=== PATIENT | male | born 1945 | race African-American/Black ===

== ENCOUNTER 2019-10-27 07:53 | Emergency (ER) | payer MEDICARE, MEDICAID ==
[~2019-10-27] VITALS: Ht 172.7 cm; Wt 55.0 kg
[2019-10-27] MEDS ORDERED: METHYLPREDNISOLONE SOD SUCC 125 MG/2 ML VIAL IV STA (08:21)
[2019-10-27] MEDS ORDERED: ALBUTEROL (0.083%) 2.5MG/3ML NEB HHN STA (08:21)
[2019-10-27] MEDS ORDERED: IPRATROPIUM BROMIDE (0.02%) 0.5MG/2.5ML NEB HHN STA (08:21)
[2019-10-27 10:12] VITALS: BP 139/72
== END 2019-10-27 10:28 | disposition home or self-care (01) ==
LOC: ER 07:53
DX: R06.02 Shortness of breath (principal)
CPT/HCPCS: 94640; 96374; 99283; J2930

== ENCOUNTER 2019-11-29 12:39 | Emergency (ER) | payer MEDICARE, MEDICAID ==
[~2019-11-29] VITALS: Ht 177.8 cm; Wt 54.0 kg
[2019-11-29] MEDS ORDERED: ALBUTEROL (0.083%) 2.5MG/3ML NEB HHN ONE (14:00)
[2019-11-29] MEDS ORDERED: PREDNISONE 20MG TABLET PO ONE (14:00)
[2019-11-29 16:06] VITALS: BP 136/76
== END 2019-11-29 16:07 | disposition home or self-care (01) ==
LOC: ER 12:39
DX: J44.1 Chronic obstructive pulmonary disease with (acute) exacerbation (principal)
CPT/HCPCS: 71045; 94640; 99283; J7512

== ENCOUNTER 2023-02-01 21:28 | Emergency (ER) | payer MEDICARE, MEDICAID ==
[~2023-02-01] VITALS: Ht 175.3 cm; Wt 68.0 kg
[2023-02-01] MEDS ORDERED: METHYLPREDNISOLONE SOD SUCC 125MG/2ML (ACT-O-VIAL) IV STA (22:18)
[2023-02-01] MEDS ORDERED: IPRATROPIUM BROMIDE (0.02%) 0.5MG/2.5ML NEB HHN STA (22:18)
[2023-02-01] MEDS ORDERED: ALBUTEROL (0.083%) 2.5MG/3ML NEB HHN STA (22:18)
[2023-02-01] MEDS ORDERED: P20 PO (22:59)
[2023-02-01] MEDS ORDERED: NIRM1TAB4 PO (22:59)
[2023-02-01] MEDS ORDERED: PREDNISONE 20MG TABLET PO ONE (23:00)
[2023-02-01 23:02] VITALS: PULSE 110; RESP 20; O2SAT 96
[2023-02-01 23:17] LABS: HEMATOCRIT. 35.7 % (42.0-52.0); HEMOGLOBIN. 11.8 g/dL (14.0-18.0); MEAN CORPUSCULAR HEMOGLOBIN 26.4 pg (28.0-32.0); MEAN CORPUSCULAR HGB CONC 33.1 g/dL (31.0-37.0); MEAN CORPUSCULAR VOLUME 79.8 fL (80.0-94.0); PLATELET 153 x1000/uL (130-400); RED BLOOD CELL COUNT 4.48 mill/uL (4.7-6.1); RED CELL DISTRIBUTION WIDTH 17.9 % (11.6-14.6); WHITE BLOOD COUNT 5.1 x1000/uL (4.5-11.0)
[2023-02-01 23:24] LABS: DIFFERENTIAL COMMENT 1
[2023-02-01 23:28] LABS: CHLORIDE 100 mEq/L (98-107); INDEX HEMOLYSI 1 (1-3); INDEX ICTERIC 1 (1-4); INDEX LIPEMIC 1 (1-3); POTASSIUM 3.6 mEq/L (3.5-5.1); SODIUM 132 mEq/L (136-145)
[2023-02-01 23:39] LABS: ALANINE AMINOTRANSFERASE 93 IU/L (13-61); ASPARTATE AMINOTRANSFERASE 80 IU/L (15-37); BILIRUBIN TOTAL 0.5 mg/dL (0.1-1.0); CALCIUM 8.3 mg/dL (8.5-10.1); CARBON DIOXIDE 26 mEq/L (21-32); CREATININE 1.1 mg/dL (0.6-1.3); GLUCOSE 126 mg/dL (70-105); NT PRO B-TYPE NATRIURETIC PEP 83 pg/mL (5-125); PROTEIN TOTAL 7.6 g/dL (6.0-8.3); UREA NITROGEN BLOOD 10 mg/dL (7-21)
[2023-02-02] VITALS: BP 107/59; PULSE 118; RESP 20; TEMP 98.4
[2023-02-02 00:21] LABS: PLATELET ESTIMATE NORMAL
== END 2023-02-02 00:03 | disposition home or self-care (01) ==
LOC: ER 21:28
DX: U07.1 COVID-19 (principal); J44.1 Chronic obstructive pulmonary disease with (acute) exacerbation
CPT/HCPCS: 99285; 71045; 87426; 80053; 83880; 85025; 36415; 94640; 93005; J7512; C9803